=== PATIENT | female | born 1975 | race Native Hawaiian/Other Pacific Islander ===

== ENCOUNTER 2019-07-20 14:52 | Emergency (ER) | payer OTHER ==
[~2019-07-20] VITALS: Ht 152.4 cm; Wt 72.6 kg
[~2019-07-20 14:52] MED LIST: AMIT25TA22 PO; LISI10TA11 PO; MECLIZINE25 MG PO
[2019-07-20 15:09] VITALS: TEMP 98.1
[2019-07-20 16:31] VITALS: BP 158/90
== END 2019-07-20 16:30 | disposition home or self-care (01) ==
LOC: ED 14:52
DX: S33.9XXA Sprain of unspecified parts of lumbar spine and pelvis, initial encounter (principal); S30.1XXA Contusion of abdominal wall, initial encounter; V59.40XA Driver of pick-up truck or van injured in collision with unspecified motor vehicles in traffic accident, initial encounter
CPT/HCPCS: 81000; 96372; 99283; J1885